=== PATIENT | male | born 1950 | race Caucasian/White ===

== ENCOUNTER 2022-11-11 07:30 | Inpatient (IN) | payer MEDICARE ==
[~2022-11-11] VITALS: Ht 162.6 cm; Wt 82.3 kg
[~2022-11-11 07:30] MED LIST: ALBU2.5V10 INH; ALLO200T PO; ATOR40TA75 PO; BASA100I SC; BAYE81TA10 PO; COLA100C5 PO; DILT1TAB3 PO; FERR325T3 PO; FLOM0.4C39 PO; GABA-283 PO; GLIP10TA6 PO; HEPARIN SOD (PORCINE) 5000UNITS/ML 1ML VIAL/SYRINGE SQ ONE; HYDR-3713 PO; IPRA0.00 INH; METF-877 PO; OMEP40CA5 PO; PAME75CA PO; QUET300T2 PO; TREL1AER INH; TRUL0.5I SC; ceFAZolin SOD 2 GM in IV 1 EA IV ONE
[2022-11-11] MEDS ORDERED: propofoL 200 MG/20 ML VIAL As Ordered ONE (10:07)
[2022-11-11] MEDS ORDERED: LIDOCAINE 2% 100MG/5ML SDV (FOR ANES.) As Ordered ONE (10:07)
[2022-11-11] MEDS ORDERED: MIDAZOLAM INJ 2MG/2ML VIAL As Ordered ONE (10:07)
[2022-11-11] MEDS ORDERED: ROCURONIUM BROMIDE 50MG/5ML VIAL As Ordered ONE ×3 (10:07→15:27)
[2022-11-11] MEDS ORDERED: fentaNYL 250 MCG/5 ML INJECTION As Ordered ONE (10:07)
[2022-11-11] MEDS ORDERED: BUPIVACAINE HCL 0.25% 30ML VIAL As Ordered ONE (11:30)
[2022-11-11] MEDS ORDERED: LIDOCAINE 1% SDV 30ML VIAL As Ordered ONE (11:30)
[2022-11-11] MEDS ORDERED: DEXTROSE 50% 50ML SYRINGE IV PRN (12:00)
[2022-11-11] MEDS ORDERED: GLUCAGON INJ 1MG VIAL SC PRN (12:00)
[2022-11-11] MEDS ORDERED: PERCOCET 5MG/325MG TAB PO PRN (12:00)
[2022-11-11] MEDS ORDERED: GLUCOSE 4GM CHEW TABLET PO PRN (12:00)
[2022-11-11] MEDS ORDERED: NS 1,000 ML IV SCH (12:00)
[2022-11-11] MEDS ORDERED: ONDANSETRON 4MG 2ML VIAL IV PRN ×2 (12:00→17:15)
[2022-11-11] MEDS: INSULIN LISPRO (NovoLOG) PER UNIT SC SCH ×2 (12:00→17:30)
[2022-11-11] MEDS ORDERED: ACETAMINOPHEN TAB 650MG DOSE (2X325MG) PO PRN (12:00)
[2022-11-11] MEDS ORDERED: COMBIVENT RESPIMAT 100-20MCG INHALER 4GM INH PRN (12:00)
[2022-11-11] MEDS ORDERED: METOCLOPRAMIDE INJ 10MG/2ML VIAL As Ordered ONE (12:14)
[2022-11-11] MEDS ORDERED: HYDROmorphone HCL 2MG/ML 1ML VIAL As Ordered ONE (12:14)
[2022-11-11] MEDS ORDERED: PHENYLephrine 500MCG 5ML (100MCG/ML) SYRINGE As Ordered ONE (12:29)
[2022-11-11] MEDS ORDERED: ACETAMINOPHEN 1000MG 100ML IV BAG As Ordered ONE (12:32)
[2022-11-11] MEDS ORDERED: ONDANSETRON 4MG 2ML VIAL As Ordered ONE (13:50)
[2022-11-11] MEDS ORDERED: ceFAZolin 2 GM/D5W 50 ML IV BAG As Ordered ONE (16:29)
[2022-11-11] MEDS ORDERED: fentaNYL 100 MCG/2 ML INJECTION IV PRN (17:15)
[2022-11-11] MEDS ORDERED: oxyCODONE 5MG TAB PO PRN (17:15)
[2022-11-11] MEDS ORDERED: MORPHINE 2 MG/ML 1ML VIAL IV PRN (17:15)
[2022-11-11 18:38] LABS: HEMATOCRIT 39.6 % (42.0-52.0); HEMOGLOBIN 12.5 g/dl (13.5-17.5); MEAN CORPUSCULAR HEMOGLOBIN 32.6 pg (27.0-33.0); MEAN CORPUSCULAR HGB CONC 31.6 g/dl (32.0-36.5); MEAN CORPUSCULAR VOLUME 103.4 fl (80.0-96.0); PLATELET COUNT, AUTOMATED 421 10^3/uL (150-450); RED BLOOD COUNT 3.83 10^6/uL (4.30-6.10); WHITE BLOOD COUNT 16.8 10^3/uL (4.0-10.0)
[2022-11-11 19:08] LABS: CALCIUM LEVEL 9.2 MG/DL (8.3-10.6); CREATININE FOR GFR 1.29 MG/DL (0.70-1.30); POTASSIUM SERUM 4.4 MMOL/L (3.5-5.1)
[2022-11-11 20:12] VITALS: BP 146/90
[2022-11-11] MEDS: HEPARIN SOD (PORCINE) 5000UNITS/ML 1ML VIAL/SYRINGE SC SCH (20:15)
[2022-11-11] MEDS: ceFAZolin SOD 1 GM in D5W MINI-BAG PLUS 50 ML IV SCH (20:15)
[2022-11-11] MEDS ORDERED: INSULIN LISPRO (NovoLOG) PER UNIT SC SCH (21:00)
[2022-11-11 21:07] VITALS: BP 148/89
[2022-11-11 22:37] VITALS: BP 154/87
[2022-11-12 01:47] VITALS: BP 148/86
[2022-11-12] MEDS: ceFAZolin SOD 1 GM in D5W MINI-BAG PLUS 50 ML IV SCH (04:22)
[2022-11-12] MEDS: PERCOCET 5MG/325MG TAB PO PRN ×2 (04:26→16:09)
[2022-11-12 05:17] VITALS: BP_SYST 172; BP_SYST 174; BP_DIAS 76; BP_DIAS 96
[2022-11-12] MEDS: HEPARIN SOD (PORCINE) 5000UNITS/ML 1ML VIAL/SYRINGE SC SCH ×2 (05:50→13:03)
[2022-11-12 07:40] LABS: HEMATOCRIT 39.3 % (42.0-52.0); HEMOGLOBIN 12.6 g/dl (13.5-17.5); MEAN CORPUSCULAR HEMOGLOBIN 32.6 pg (27.0-33.0); MEAN CORPUSCULAR HGB CONC 32.1 g/dl (32.0-36.5); MEAN CORPUSCULAR VOLUME 101.8 fl (80.0-96.0); PLATELET COUNT, AUTOMATED 420 10^3/uL (150-450); RED BLOOD COUNT 3.86 10^6/uL (4.30-6.10); WHITE BLOOD COUNT 13.8 10^3/uL (4.0-10.0)
[2022-11-12] MEDS ORDERED: MIRA3350 PO (07:54)
[2022-11-12] MEDS ORDERED: MAGN64TASA PO (07:54)
[2022-11-12] MEDS ORDERED: GLIP10TA18 PO (07:54)
[2022-11-12] MEDS ORDERED: INSULADS SC (07:54)
[2022-11-12] MEDS ORDERED: DULC10SU2 PR (07:54)
[2022-11-12] MEDS ORDERED: ALLO300T2 PO (07:54)
[2022-11-12] MEDS ORDERED: IPRA0.00 INH (07:54)
[2022-11-12] MEDS ORDERED: HOME MED LIST COMPLETE! XX SCH (08:00)
[2022-11-12 08:06] LABS: BLOOD UREA NITROGEN 9 MG/DL (9-23); CALCIUM LEVEL 9.4 MG/DL (8.3-10.6); CARBON DIOXIDE LEVEL 24 MMOL/L (20-31); CHLORIDE LEVEL 101 MMOL/L (98-107); GLOMERULAR FILTRATION RATE > 60.0 (>42); GLUCOSE, FASTING 272 MG/DL (74-106); POTASSIUM SERUM 4.7 MMOL/L (3.5-5.1); SODIUM LEVEL 135 MMOL/L (136-145)
[2022-11-12] MEDS ORDERED: allopurinoL 100 MG TAB PO SCH (09:00)
[2022-11-12] MEDS ORDERED: DOCUSATE SODIUM 100MG CAPSULE PO SCH (09:00)
[2022-11-12] MEDS ORDERED: allopurinoL 300 MG TAB PO SCH (09:00)
[2022-11-12] MEDS ORDERED: BACTRIM 160MG/800MG DS TAB PO SCH (09:00)
[2022-11-12] MEDS ORDERED: OMEPRAZOLE 20MG CAP PO SCH (09:00)
[2022-11-12] MEDS ORDERED: GABAPENTIN 400MG CAP PO SCH (09:00)
[2022-11-12] MEDS: INSULIN LISPRO (NovoLOG) PER UNIT SC SCH ×2 (09:16→12:55)
[2022-11-12 09:19] VITALS: BP 170/97
[2022-11-12] MEDS: GABAPENTIN 400MG CAP PO SCH ×2 (09:20→16:09)
[2022-11-12 10:03] VITALS: BP 175/98
[2022-11-12 14:00] VITALS: BP 161/94
[2022-11-12] MEDS ORDERED: BACTDSTA PO (15:54)
[2022-11-12] MEDS ORDERED: FERROUS SULFATE 325MG TAB PO SCH (21:00)
[2022-11-12] MEDS ORDERED: QUEtiapine FUMARATE 100 MG TAB PO SCH (21:00)
[2022-11-12] MEDS ORDERED: NORTRIPTYLINE 25 MG CAP PO SCH (21:00)
[2022-11-12] MEDS ORDERED: ATORVASTATIN 20 MG TAB PO SCH (21:00)
== END 2022-11-12 16:31 | disposition home or self-care (01) | DRG 708 ==
LOC: M OR 10:24 → M MS5PR 18:24
PROVIDERS: ADMIT Urology; ATTEND Urology
PROC: 07TC4ZZ Resection of Pelvis Lymphatic, Percutaneous Endoscopic Approach (ICD-10-PCS; 2022-11-11)
PROC: 8E0W4CZ Robotic Assisted Procedure of Trunk Region, Percutaneous Endoscopic Approach (ICD-10-PCS; 2022-11-11)
PROC: 0VT04ZZ Resection of Prostate, Percutaneous Endoscopic Approach (ICD-10-PCS; principal; 2022-11-11 12:05)
DX: C61 Malignant neoplasm of prostate (principal); E11.9 Type 2 diabetes mellitus without complications; J44.9 Chronic obstructive pulmonary disease, unspecified; Z79.82 Long term (current) use of aspirin; I10 Essential (primary) hypertension; M10.9 Gout, unspecified; Z95.2 Presence of prosthetic heart valve; Z79.4 Long term (current) use of insulin; Z79.84 Long term (current) use of oral hypoglycemic drugs; Z79.899 Other long term (current) drug therapy